=== PATIENT | male | born 1935 | race Hispanic/Latino ===

== ENCOUNTER 2017-08-31 15:50 | Outpatient (CLI) | payer OTHER ==
--- NOTE | 2017-08-31 17:06 | RAD ---
CERVICAL SPINE FOUR VIEWS: 08/31/17 HISTORY: Neck pain. FINDINGS: Disc space narrowing is most pronounced at the C3-4 and C4-5 levels. There is prominent osteophytosis throughout the cervical spine. Minimal degenerative retrolisthesis at the C3-C4 level on the neutral view reduces upon flexion and is unchanged upon extension. No acute fracture or dislocation are appa rent. There is minimal chronic appearing compression of the C5 superior end plate. IMPRESSION: Prominent osseous degenerative changes cervical spine. POS: SONIA
== END 2017-08-31 15:51 | disposition home or self-care (01) ==
LOC: TBSIIMAG 15:50
PROVIDERS: ATTEND Neurological Surgery
DX: M48.02 Spinal stenosis, cervical region (principal); M47.892 Other spondylosis, cervical region
CPT/HCPCS: 72040

== ENCOUNTER 2019-03-17 18:52 | Emergency (ER) | payer MEDICARE ==
[2019-03-17 19:46] LABS: #Basophils 0.1 thou/uL (0.0-0.2); #Eosinphils 0.1 thou/uL (0.0-0.7); #Lymphocytes 1.1 thou/uL (1.20-3.40); #Monocytes 0.6 thou/uL (0.11-0.59); #Neutrophils 5.2 thou/uL (1.40-6.50); %Basophils 0.9 % (0.0-1.0); %Eosinophils 0.9 % (0.0-10.0); %Lymphocytes 15.1 % (21.0-51.0); %Monocytes 8.5 % (0.0-10.0); %Neutrophils 74.7 % (42.0-75.0); Mean Corpuscular HGB CONC 32.8 g/dL (32.0-36.0); Mean Corpuscular Hemoglobin 29.6 pg (27.0-31.0); Mean Corpuscular Volume 90.2 fL (78.0-98.0); Mean Platelet Volume 7.5 fL (7.4-10.4); Platelet Count 231 thou/uL (130-400); Red Blood Cell (RBC) Count 4.38 mill/uL (4.70-6.10)
--- NOTE | 2019-03-17 19:53 | RAD ---
RADIOGRAPH CHEST 1 VIEW: DATE: 03/17/2019 TIME: 7:41 PM HISTORY: 83-year-old male status post syncope COMPARISON: None available FINDINGS: Small patchy airspace density at the left lateral base silhouetting the left lateral costophrenic ang le. No other airspace density. No cardiomegaly or pulmonary edema. No pneumothorax. IMPRESSION: 1. Small pulmonary density at left lateral base, nonspecific. 2. Otherwise negative.
[2019-03-17 20:08] LABS: ALT (SGPT) 16 U/L (8-55); AST (SGOT) 16 U/L (5-34); Alkaline Phosphatase 61 U/L (40-150); Anion Gap 18 mmol/L (10-20); BUN (Urea Nitrogen) 17 mg/dL (8.4-25.7); Bilirubin, Total 0.4 mg/dL (0.2-1.2); CK (CPK) 28 U/L (30-200); Calc. Creatinine Clearance 0 mL/min (70-130); Calcium 9.4 mg/dL (7.8-10.44); Carbon Dioxide 24 mmol/L (23-31); Chloride 98 mmol/L (98-107); Estimated GFR-MDRD 86; Globulin 3.1 g/dL (2.4-3.5); Glucose 143 mg/dL (83-110); Potassium 4.6 mmol/L (3.5-5.1); Protein, Total 7.1 g/dL (5.8-8.1); Sodium 135 mmol/L (136-145)
== END 2019-03-17 21:41 | disposition home or self-care (01) ==
LOC: ERS 18:52
DX: R55 Syncope and collapse (principal); R19.7 Diarrhea, unspecified; F03.90 Unspecified dementia, unspecified severity, without behavioral disturbance, psychotic disturbance, mood disturbance, and anxiety; I10 Essential (primary) hypertension; G20 Parkinson's disease; E11.9 Type 2 diabetes mellitus without complications
CPT/HCPCS: 36415; 71045; 80053; 82550; 83605; 84484; 85025; 93005; 94760; 96360; 96361